=== PATIENT | female | born 2005 | race African-American/Black ===

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

== ENCOUNTER 2024-10-27 13:59 | Emergency (ER) | payer MEDICAID ==
[~2024-10-27] VITALS: Ht 167.6 cm; Wt 46.0 kg
[~2024-10-27 13:59] MED LIST: IBUP-2029 MT
[2024-10-27 14:05] VITALS: O2SAT 100
[2024-10-27 14:13] VITALS: BP 119/75; PULSE 104; RESP 16; TEMP 36.6; O2SAT 100
== END 2024-10-27 18:03 | disposition left against medical advice (07) ==
LOC: ER 14:29
DX: K92.1 Melena (principal); Z53.21 Procedure and treatment not carried out due to patient leaving prior to being seen by health care provider